=== PATIENT | female | born 1965 | race Caucasian/White ===

== ENCOUNTER → 2017-09-18 | Outpatient (CLI) | payer BC ==
[2017-09-18 17:12] LABS: BASO # 0.1 (0.0-0.2); BASO % 0.6 % (0.0-2.0); EOS # 0.2 (0.0-0.7); EOS % 1.6 % (0-4.0); GRAN # 6.5 (1.4-6.5); GRAN % 59.4 % (42.2-75.2); HEMOGLOBIN 13.7 g/dl (12.5-16.0); LYMPH # 3.6 (1.2-3.4); LYMPH % 32.9 % (20.0-51.0); MEAN CELL VOLUME 94 fl (80.0-100.0); MEAN CORPUSCULAR HEMOGLOBIN 32 pg (27.0-31.0); MEAN CORPUSCULAR HGB CONC 33 g/dl (33.0-37.0); MEAN PLATELET VOLUME 11.4 fl (7.4-10.4); MONO # 0.6 (0.1-0.6); MONO % 5.3 % (1.7-9.3); PLATELET COUNT 338 K/mm3 (130-400); RED BLOOD COUNT 4.35 M/mm3 (4.10-5.30)
[2017-09-18 17:23] LABS: ALBUMIN 4.4 gm/dL (3.5-5.0); BILIRUBIN,TOTAL 0.6 mg/dL (0.0-1.0); CALCIUM 9.9 mg/dL (8.4-10.2); CHOLESTEROL RISK RATIO 4.3; CREATININE, serum 0.81 mg/dL (0.52-1.25); POTASSIUM 3.9 mmol/L (3.4-5.0); TOTAL PROTEIN 7.5 gm/dL (6.4-8.2)
[2017-09-18 17:51] LABS: TSH w REFLEX 1.85 uIU/mL (0.465-4.680)
== END ==
LOC: COL.LAB 14:46
PROVIDERS: Family Medicine
DX: Z01.419 Encounter for gynecological examination (general) (routine) without abnormal findings (principal); Z13.220 Encounter for screening for lipoid disorders; Z13.29 Encounter for screening for other suspected endocrine disorder